=== PATIENT | female | born 1980 | race African-American/Black ===

== ENCOUNTER 2021-03-19 21:39 | Emergency (ER) | payer SELFPAY ==
[~2021-03-19] VITALS: Ht 167.6 cm; Wt 75.0 kg
[2021-03-19 21:56] VITALS: BP 130/67
[2021-03-19] MEDS ORDERED: CEPH500C2 MT (22:24)
[2021-03-19] MEDS ORDERED: CETI10CA11 PO (22:24)
[2021-03-19] MEDS ORDERED: HYDR453.3 TP (22:24)
== END 2021-03-19 22:29 | disposition home or self-care (01) ==
LOC: ER 21:39
DX: S80.862A Insect bite (nonvenomous), left lower leg, initial encounter (principal); L03.116 Cellulitis of left lower limb; W57.XXXA Bitten or stung by nonvenomous insect and other nonvenomous arthropods, initial encounter; Y93.89 Activity, other specified; Y92.89 Other specified places as the place of occurrence of the external cause; Y99.8 Other external cause status; Z79.899 Other long term (current) drug therapy
CPT/HCPCS: 99283

== ENCOUNTER 2021-09-18 09:50 | Emergency (ER) | payer SELFPAY ==
[~2021-09-18] VITALS: Ht 167.6 cm; Wt 75.0 kg
[~2021-09-18 09:50] MED LIST: CEPH500C2 MT; CETI10CA11 PO; HYDR453.3 TP
[2021-09-18 09:53] VITALS: BP 119/61
== END 2021-09-18 12:49 | disposition home or self-care (01) ==
LOC: ER 09:55
DX: N89.8 Other specified noninflammatory disorders of vagina (principal)
CPT/HCPCS: 87210; 99283